=== PATIENT | male | born 1940 | race Caucasian/White ===

== ENCOUNTER → 2024-01-09 07:51 | Outpatient (REF) | payer OTHER, SELFPAY | LOC: HWRAD 07:51 | PROVIDERS: ATTENDING PHYSICIAN Internal Medicine Cardiovascular Disease; FAMILY PHYSICIAN Nurse Practitioner | DX: I71.20 Thoracic aortic aneurysm, without rupture, unspecified (principal) | CPT/HCPCS: 71250 ==

== ENCOUNTER → 2024-01-21 12:55 | Outpatient (REF) | payer OTHER, SELFPAY | LOC: RAD 12:55 | PROVIDERS: ATTENDING PHYSICIAN Internal Medicine Cardiovascular Disease; FAMILY PHYSICIAN Nurse Practitioner | DX: I71.20 Thoracic aortic aneurysm, without rupture, unspecified (principal) | CPT/HCPCS: 76770 ==

== ENCOUNTER 2024-04-11 11:31 | Emergency (ER) | payer OTHER, SELFPAY ==
[2024-04-11] VITALS (9 sets, daily range): BP systolic 124–154; BP diastolic 65–87; PULSE 72; O2SAT 98; BMI 28.8
--- NOTE | 2024-04-11 12:12 | ED.GENMED ---
History of Present Illness
General
Chief Complaint: Swelling
Source: patient
Exam Limitations: none
Time Seen by Provider: 04/11/24 11:42
Travel History
Have you had any contact with someone who has COVID-19?: No
Do you have any symptoms of coronavirus? Fever > 100 degrees, chills, cough, shortness of breath, sore throat, loss of taste or smell, muscle aches, or headache?: No
History of Present Illness
History of Present Illness:
83-year-old male with history of dementia presents from home where he lives by himself. Daughter accompanies him who states that the patient has had increased swelling in his legs with blister formation currently. He was here 3 months ago for the
same. He has in the interim had an echocardiogram and seeing cardiology. He was prescribed Lasix. Taking Lasix at home with his dementia becomes an issue for the family as he lives by himself and he does not quite get to the bathroom soon enough
sometimes. They noted blisters in his right leg today and presented here. Patient pleasant but a poor historian but denies shortness of breath.
Past History
Past History
ED Past Medical History: Arrthythmia (Atrial fibrillation), HTN and Other (Gout, peptic ulcer disease, anemia, Sciatica, H-pylori. Cellulitis, )
ED Past Surgical History: Orthopedic (Bilateral knee replacement, ), Urological (Prostate scrapping, ) and Other (Hernia repair, )
Social History
Tobacco: Non-smoker
Alcohol: None
Personal:
Living: alone
Phy Exam
Physical Exam
Physical Exam:
General: Well-appearing male no acute respiratory distress
HEENT: Normocephalic atraumatic
Heart: Regular rate and rhythm no murmurs
Lungs: CTA, no rales
Ext: pitting edema with blister formation bilateral lower extremities and overlying erythema. No induration. Not significantly tender
Scores
Heart Failure Risk
Heart Failure Risk Score: Not Applicable
Course
Orders/Labs/Results
Orders:
Orders
04/11/24 12:07
Complete Blood Count/With Diff Urgent
Comprehensive Metabolic Panel Urgent
NT-proBNP Urgent
Prothrombin Time Urgent
04/11/24 12:39
PT Consult [Pt Eval And Treat] Urgent
Activity Level: Ambulate
Abnormal Lab Results
04/11/24
12:07
RBC 3.96 L 10^6/uL
(4.70-6.10)
Hgb 12.3 L g/dL
(13.0-18.0)
Hct 36.7 L %
(39.0-52.0)
MCH 31.1 H pg
(27.0-31.0)
Monocytes % 9.9 H %
(1.7-9.3)
PT 30.4 H Sec
(11.4-14.6)
BUN 28 H mg/dl
(9-20)
Glucose 104 H mg/dl
(70-99)
04/11/24 12:07
04/11/24 12:07
Vital Signs
Initial and Last Documented VS:
Initial Vital Signs
Temp Pulse Resp BP Pulse Ox
97.5 F 72 16 152/87 94
04/11/24 11:33 04/11/24 11:33 04/11/24 11:33 04/11/24 11:33 04/11/24 11:33
Last Documented Vital Signs
Temp Pulse Resp BP Pulse Ox
97.5 F 62 22 125/72 97
04/11/24 11:33 04/11/24 14:45 04/11/24 15:00 04/11/24 15:00 04/11/24 14:00
MDM/Problems Addressed
Differential Diagnosis Includes:
Swelling with blisters to the lower extremities. No respiratory distress.
Recent echocardiogram in November of this year demonstrated ejection fraction of 55 to 60%.
Patient's underlying history of provides challenge for the family in today's care. Living at home seems to be less feasible. Family concerned about his safety. No respiratory distress here will check labs and BNP. Consult case management
*Critical Care Note
Total Time (30-74mins, 75-104mins- exclusive of procedures): Not Applicable
Update Note
Update Note:
Patient seen evaluated by physical therapy and case management. BNP is minimal. He did ambulate with physical therapy but was unsteady and almost stumbled. Physical therapy recommended [facility]. Case management able to find a place.
He is stable for discharge to the facility
ED Attending Note
-
Portions of this chart may have been created with voice recognition software.� Occasional wrong word or��sound alike� substitutions may have occurred due to the inherent limitations of voice recognition software.
Discharge Plan
Departure
Patient Disposition: [facility]/SNF
Date of Disposition: 04/11/24
Time of Disposition: 16:17
Discharge Problem:
Leg edema
Prescriptions:
No Action
pantoprazole [Protonix] 40 MG tablet,delayed release (DR/EC)
40 mg PO BID
ferrous sulfate [iron] 325 MG tablet
325 mg PO DAILY
febuxostat 40 MG tablet
40 mg PO DAILY
atorvastatin 20 mg Tablet
20 mg PO DAILY
warfarin 2.5 mg Tablet
2.5 mg PO TUTH@1700
lisinopril 2.5 mg Tablet
2.5 mg PO DAILY
warfarin [Jantoven] 5 MG tablet
5 mg PO SUMOWEFRSA@1700
metoprolol tartrate 50 MG tablet
25 mg PO BID Qty: 30 0RF
furosemide [Lasix] 20 mg tablet
20 mg PO MOWEFR
Referrals:
Marjorie Hill CRNP [Family Provider] -
Activity Restrictions/Additional Instructions:
Please continue medications. Please continue physical therapy. Return if worse otherwise
Interventions
Interventions:
*Risk Screen - Suicide Last Done: 04/11/24 12:17
*General Assessment Last Done: 04/11/24 12:15
*Neglect/Abuse Screening Last Done: 04/11/24 12:17
ED- Fall Risk Assessment Last Done: 04/11/24 12:17
*ED COVID-19 Vaccine History Last Done: 04/11/24 12:15
ED- Cardiac Assessment Last Done: 04/11/24 12:21
ED- Pulmonary Assessment Last Done: 04/11/24 12:21
ED-Skin Assessment Last Done: 04/11/24 12:17
Discharge Date and Time
Print Language: COLOMBI[place]
[2024-04-11 12:27] LABS: % Basophils 0.6 % (0-2); % Eosinophils 5.6 % (0-6); % Immature Granulocytes 0.2 % (0-0.5); % Lymphocytes 25.9 % (20.5-51.1); % Monocytes 9.9 % (1.7-9.3); % Neutrophils 57.8 % (42.2-75.2); Absolute Eosinophils 0.3 10^3/uL (0-0.7); Absolute Lymphocytes 1.3 10^3/uL (1.2-3.4); Absolute Monocytes 0.5 10^3/uL (0.1-0.6); Hematocrit 36.7 % (39.0-52.0); Hemoglobin 12.3 g/dL (13.0-18.0); Mean Corp Hgb Conc. 33.5 g/dL (33.0-37.0); Mean Corpuscular Hgb 31.1 pg (27.0-31.0); Mean Corpuscular Volume 92.7 fL (80.0-94.0); Mean Platelet Volume 9.4 fL (7.4-10.4); Nucleated Red Blood Cells % 0 % (-); Platelet Count 178 10^3/uL (130-400); Red Blood Cell Count 3.96 10^6/uL (4.70-6.10); Red Cell Dist. Width 12.9 % (11.5-14.5); White Blood Cell Count 5.2 10^3/uL (4.8-10.8)
[2024-04-11 12:32] LABS: INR 2.91; PT 30.4 Sec (11.4-14.6)
[2024-04-11 12:42] LABS: NT-proBNP 215 pg/ml
--- NOTE | 2024-04-11 12:49 | CM ---
Addendum entered by Essie Rodriguez RN 04/11/24 16:03:
Family is updated with authorization. Family will drive patient to SNF. Updated bedside RN.
Addendum entered by Essie Rodriguez RN 04/11/24 15:54:
[employer] Authorization
[id number]
NRD 04/16/2024
[facility]
[phone]
fax
[phone]
Addendum entered by Essie Rodriguez RN 04/11/24 15:35:
Patient is a [employer] member. CM left message for senior integration architect UR RN.
Addendum entered by Essie Rodriguez RN 04/11/24 15:16:
[facility] has accepted patient. CM left message with IB for return call for authorization. CM pending call back.
Addendum entered by Essie Rodriguez RN 04/11/24 14:03:
Patient has been accepted to [facility]. CM is awaiting PT evaluation. CM updated patient and family. THey are agreeable to plan. Pending insurance authorization.
Original Note:
CM met with patient and daughter in room. CM spoke with patient's other daughter via phone. Both daughters endorse, that patient is failing at home and they believe he is unsafe to return home. He currently has [facility] twice a week, but
daughter's believe that he does not have enough supervision. Patient's daughter endorses that they are working with [facility] admission coordinator to place patient. They will continue to work with [facility] to confirm placement
availability.
Family is requesting referrals to [facility] for Skilled placement. They also agreeable to [facility]. CM sent referrals via [facility]. GLADYS spoke with Radha from [facility] to discuss referral she will review referral and
confirm acceptance.
CM updated ED PA with placement efforts.
[2024-04-11 13:01] LABS: ALT (SGPT) 30 U/L (0-50); AST (SGOT) 43 U/L (17-59); Albumin 3.9 g/dl (3.5-5.0); Alkaline Phosphatase 79 U/L (38-126); Blood Urea Nitrogen 28 mg/dl (9-20); Calcium 9.1 mg/dl (8.4-10.2); Carbon Dioxide 28 mmol/L (22-30); Chloride 105 mmol/L (98-107); Estimated Creatinine Clearance 49 ml/min; Glucose 104 mg/dl (70-99); Potassium 4.5 mmol/L (3.5-5.1); Sodium 140 mmol/L (135-145); Total Bilirubin 1.1 mg/dl (0.2-1.3); Total Protein 7.3 g/dl (6.3-8.2); eGFR 55.19
== END 2024-04-11 17:02 ==
LOC: EMR 11:31
PROVIDERS: Physician Assistant; EMERGENCY PHYSICIAN Emergency Medicine; FAMILY PHYSICIAN Nurse Practitioner
DX: R60.0 Localized edema (principal); I48.91 Unspecified atrial fibrillation; I10 Essential (primary) hypertension; F03.90 Unspecified dementia, unspecified severity, without behavioral disturbance, psychotic disturbance, mood disturbance, and anxiety; Z60.2 Problems related to living alone; Z87.11 Personal history of peptic ulcer disease
CPT/HCPCS: 99283; 80053; 83880; 85025; 85610

== ENCOUNTER 2025-02-08 16:26 | Emergency (ER) | payer MEDICARE, SELFPAY ==
[2025-02-08 16:29] VITALS: BP 147/89; BMI 27.1
--- NOTE | 2025-02-08 16:33 | ED.GENMED ---
History of Present Illness
<Esther Spicer PA-C - Last Filed: 02/08/25 17:54>
General
Chief Complaint: Fall
Source: patient
Exam Limitations: none
Time Seen by Provider: 02/08/25 16:28
Nursing documentation reviewed up to this point in time: agreed with
<Ab Quiroz DO - Last Filed: 02/08/25 19:14>
History of Present Illness
History of Present Illness:
TIME OF INITIAL ENCOUNTER:
HPI: The patient was walking at [facility] with his daughter. The daughter feels that he tripped and fell on something. He is on Coumadin. Family was adamant that he come to [place] for evaluation as opposed to going to a trauma center. I
did speak to EMS prior to arrival. The patient does have a history of dementia and is at his baseline. He does have signs of craniofacial trauma upon arrival. Family states he has chronic lower extremity edema.
EXAM:
GENERAL: The patient appears somewhat generally weak
CERVICAL SPINE: No midline c-spine tenderness with excellent AROM
HEAD: There is a hematoma with overlying abrasion to the left side of the forehead, there is a laceration over the nasal bone which is irregular
CHEST: No chest wall tenderness, normal heart sounds
LUNGS: Equal lung sounds, no respiratory distress
ABDOMEN: No abdominal tenderness, no peritoneal signs
EXTREMITIES: Normal active range of motion, no tenderness, abrasions are noted to the knees however the patient has excellent range of motion at hips and knees. There is no pain with passive range of motion into rotation of either hip. Mild ankle
edema is noted which is chronic.
NEURO: Good strength all extremities, he is not oriented to month or place and does have a history of dementia and reportedly is at his baseline mental status
NUMBER AND COMPLEXITY OF PROBLEMS ADDRESSED AT THE ENCOUNTER
� Chronic conditions affecting care: Dementia, atrial fibrillation on Coumadin
� Acute Exacerbation and/or Progression of Chronic Illness: This is an acute problem
� Differential Diagnosis includes: Minor head injury, abrasion, hematoma, intracranial hemorrhage,
AMOUNT AND/OR COMPLEXITY OF DATA TO BE REVIEWED AND ANALYZED
� I performed an independent evaluation of and my interpretation is:
EKG:
CT: Brain CT shows no acute abnormality
X-rays:
Laboratory Studies: [facility] count 5.8, hemoglobin 11.3, INR 1.25, BUN 28, creatinine normal
Other:
� Review of other/old records: I reviewed records, the patient has been here multiple times in the past related to lower extremity edema
� Clinical information was obtained by an independent historian: I spoke to the daughters at bedside upon arrival
� Prescriptions/Medications Considered but not given:
� Further testing considered but not performed:
RISK OF COMPLICATIONS AND/OR MORBIDITY OR MORTALITY OF PATIENT MANAGEMENT
� Social determinants of health affecting care: Resides at [facility]
� Discussion with other providers:
� Escalation of care including admission/observation vs risk of discharge considered: Given patient's age on Coumadin, brain CT will be obtained. Family states that he is at his baseline mental status.
ANY OTHER UPDATES:
The patient did have tetanus updated and laceration repaired.
Past History
<Esther Spicer PA-C - Last Filed: 02/08/25 17:54>
Past History
ED Past Medical History: Arrthythmia (Atrial fibrillation), HTN and Other (Gout, peptic ulcer disease, anemia, Sciatica, H-pylori. Cellulitis, )
ED Past Surgical History: Orthopedic (Bilateral knee replacement, ), Urological (Prostate scrapping, ) and Other (Hernia repair, )
Social History
Tobacco: Non-smoker
Alcohol: None
Personal:
Living: alone
Phy Exam
<Ab Quiroz DO - Last Filed: 02/08/25 19:14>
Physical Exam
Physical Exam:
See HPI
Course
<Esther Spicer PA-C - Last Filed: 02/08/25 17:54>
Orders/Labs/Results
Orders:
Orders
02/08/25 16:34
CT Head W/o Iv Contrast Urgent
Comment:
Reason For Exam: trauma coumadin
02/08/25 16:42
Complete Blood Count/With Diff Urgent
Comprehensive Metabolic Panel Urgent
PT/INR [Prothrombin Time] Urgent
02/08/25 18:21
Tetanus/Diphth/Acelpertussis [Adacel] 0.5 ml IM .ONCE ONE
Abnormal Lab Results
02/08/25
16:42
RBC 3.58 L 10^6/uL
(4.70-6.10)
Hgb 11.3 L g/dL
(13.0-18.0)
Hct 33.3 L %
(39.0-52.0)
MCH 31.6 H pg
(27.0-31.0)
MPV 10.5 H fL
(7.4-10.4)
PT 16.0 H Sec
(11.4-14.6)
BUN 28 H mg/dl
(9-20)
Glucose 109 H mg/dl
(70-99)
02/08/25 16:42
02/08/25 16:42
Vital Signs
Initial and Last Documented VS:
Initial Vital Signs
Temp Pulse Resp BP Pulse Ox
37.1 C 71 18 147/89 99
02/08/25 16:29 02/08/25 16:29 02/08/25 16:29 02/08/25 16:29 02/08/25 16:29
Last Documented Vital Signs
Temp Pulse Resp BP Pulse Ox
37.1 C 80 11 133/64 100
02/08/25 16:29 02/08/25 18:30 02/08/25 18:30 02/08/25 18:00 02/08/25 18:30
<Ab Quiroz, - Last Filed: 02/08/25 19:14>
Orders/Labs/Results
Orders:
Orders
02/08/25 16:34
CT Head W/o Iv Contrast Urgent
Comment:
Reason For Exam: trauma coumadin
02/08/25 16:42
Complete Blood Count/With Diff Urgent
Comprehensive Metabolic Panel Urgent
PT/INR [Prothrombin Time] Urgent
02/08/25 18:21
Tetanus/Diphth/Acelpertussis [Adacel] 0.5 ml IM .ONCE ONE
Abnormal Lab Results
02/08/25
16:42
RBC 3.58 L 10^6/uL
(4.70-6.10)
Hgb 11.3 L g/dL
(13.0-18.0)
Hct 33.3 L %
(39.0-52.0)
MCH 31.6 H pg
(27.0-31.0)
MPV 10.5 H fL
(7.4-10.4)
PT 16.0 H Sec
(11.4-14.6)
BUN 28 H mg/dl
(9-20)
Glucose 109 H mg/dl
(70-99)
02/08/25 16:42
02/08/25 16:42
Vital Signs
Initial and Last Documented VS:
Initial Vital Signs
Temp Pulse Resp BP Pulse Ox
37.1 C 71 18 147/89 99
02/08/25 16:29 02/08/25 16:29 02/08/25 16:29 02/08/25 16:29 02/08/25 16:29
Last Documented Vital Signs
Temp Pulse Resp BP Pulse Ox
37.1 C 80 11 133/64 100
02/08/25 16:29 02/08/25 18:30 02/08/25 18:30 02/08/25 18:00 02/08/25 18:30
Procedures
<Esther Spicer PA-C - Last Filed: 02/08/25 17:54>
Laceration Closure
Nose:
Status of Wound: clean
Size of Wound in cm: 3
Description of Wound Edges: macerated
Preparation: cleaned with saline
Anesthesia: 1% Lidocaine with epi
Revision/Debridement: routine- no revision
Wound exploration: explored to base- no FB
Type of Closure: single layer closure
Skin Closure Material: 5-0 nylon
Number of sutures: 6
<Ab Quiroz DO - Last Filed: 02/08/25 19:14>
*Critical Care Note
Total Time (30-74mins, 75-104mins- exclusive of procedures): Not Applicable
ED Attending Note
<Esther Spicer PA-C - Last Filed: 02/08/25 17:54>
-
Portions of this chart may have been created with voice recognition software.� Occasional wrong word or��sound alike� substitutions may have occurred due to the inherent limitations of voice recognition software.
Discharge Plan
Departure
Patient Disposition: Home (Routine Discharge)
Date of Disposition: 02/08/25
Time of Disposition: 18:20
Patient with high blood pressure during this ER visit?: Yes
Discharge Problem:
Facial laceration, Head injury
Instructions: Head Injury in Adults (DC), Laceration Repair With Stitches (DC), Preventing falls in adults, BLOOD PRESSURE
Prescriptions:
No Action
pantoprazole [Protonix] 40 MG tablet,delayed release (DR/EC)
40 mg PO BID
ferrous sulfate [iron] 325 MG tablet
325 mg PO DAILY
febuxostat 40 MG tablet
40 mg PO DAILY
atorvastatin 20 mg Tablet
20 mg PO DAILY
warfarin 2.5 mg Tablet
2.5 mg PO TUTH@1700
lisinopril 2.5 mg Tablet
2.5 mg PO DAILY
warfarin [Jantoven] 5 MG tablet
5 mg PO SUMOWEFRSA@1700
metoprolol tartrate 50 MG tablet
25 mg PO BID Qty: 30 0RF
furosemide [Lasix] 20 mg tablet
20 mg PO MOWEFR
Referrals:
Maverick Dominguez MD [Family Provider] -
Activity Restrictions/Additional Instructions:
The CAT scan of the brain shows no internal bleeding. There is no sign of nasal bone fracture. Basic blood work is relatively unremarkable. However the Coumadin level (INR) is only 1.25. Typically for atrial fibrillation we want the INR between
2 and 3. I would asked the staff at [facility] to address this as they may want to increase his dosing of Coumadin. I recommend staff at [facility] have the stitches removed in approximately 5 to 7 days. Return here if worse or other concerns.
Interventions
Interventions:
*Risk Screen - Suicide Last Done: 02/08/25 16:29
*General Assessment Last Done: 02/08/25 16:29
*Neglect/Abuse Screening Last Done: 02/08/25 16:29
*ED- Fall Risk Assessment Last Done: 02/08/25 16:29
*ED COVID-19 Vaccine History Last Done: 02/08/25 16:29
*Nursing Disposition Last Done: 02/08/25 19:03
ED-Musculoskeletal Assessment Last Done: 02/08/25 16:45
ED- Neurological Assessment Last Done: 02/08/25 16:46
ED-Skin Assessment Last Done: 02/08/25 16:45
Discharge Date and Time
Discharge Date/Time: 02/08/25 19:04
Print Language: [place]
[2025-02-08 16:50] LABS: % Basophils 0.5 % (0-2); % Eosinophils 4.3 % (0-6); % Immature Granulocytes 0.2 % (0-0.5); % Lymphocytes 30.9 % (20.5-51.1); % Monocytes 9.3 % (1.7-9.3); % Neutrophils 54.8 % (42.2-75.2); Absolute Eosinophils 0.3 10^3/uL (0-0.7); Absolute Lymphocytes 1.8 10^3/uL (1.2-3.4); Absolute Monocytes 0.5 10^3/uL (0.1-0.6); Absolute Neutrophils 3.2 10^3/uL (1.4-6.5); Hematocrit 33.3 % (39.0-52.0); Hemoglobin 11.3 g/dL (13.0-18.0); Mean Corp Hgb Conc. 33.9 g/dL (33.0-37.0); Mean Corpuscular Hgb 31.6 pg (27.0-31.0); Mean Platelet Volume 10.5 fL (7.4-10.4); Nucleated Red Blood Cells % 0 % (-); Platelet Count 174 10^3/uL (130-400); Red Blood Cell Count 3.58 10^6/uL (4.70-6.10); Red Cell Dist. Width 13.4 % (11.5-14.5); White Blood Cell Count 5.8 10^3/uL (4.8-10.8)
[2025-02-08 16:57] LABS: INR 1.25
[2025-02-08 17:00] VITALS: BP 127/67
[2025-02-08 17:03] LABS: ALT (SGPT) 19 U/L (0-50); AST (SGOT) 25 U/L (17-59); Albumin 4.1 g/dl (3.5-5.0); Alkaline Phosphatase 68 U/L (38-126); Blood Urea Nitrogen 28 mg/dl (9-20); Calcium 8.8 mg/dl (8.4-10.2); Carbon Dioxide 30 mmol/L (22-30); Chloride 105 mmol/L (98-107); Estimated Creatinine Clearance 52 ml/min; Glucose 109 mg/dl (70-99); Potassium 4.1 mmol/L (3.5-5.1); Sodium 142 mmol/L (135-145); Total Protein 7.1 g/dl (6.3-8.2); eGFR > 60.00
[2025-02-08 18:00] VITALS: BP 133/64
[2025-02-08] MEDS: ADACEL 0.5 ML IM (18:35)
== END 2025-02-08 19:04 | disposition home or self-care (01) ==
LOC: EMR 16:26
PROVIDERS: Physician Assistant; EMERGENCY PHYSICIAN Emergency Medicine; FAMILY PHYSICIAN Family Medicine
DX: S01.81XA Laceration without foreign body of other part of head, initial encounter (principal); W01.0XXA Fall on same level from slipping, tripping and stumbling without subsequent striking against object, initial encounter; F03.90 Unspecified dementia, unspecified severity, without behavioral disturbance, psychotic disturbance, mood disturbance, and anxiety; I10 Essential (primary) hypertension; I48.91 Unspecified atrial fibrillation; Z87.11 Personal history of peptic ulcer disease; Z79.01 Long term (current) use of anticoagulants; Z23 Encounter for immunization
CPT/HCPCS: 12013; 90471; 99284; 70450; 80053; 85025; 85610; 90715